=== PATIENT | female | born 1970 | race Caucasian/White ===

== ENCOUNTER → 2017-10-14 | Outpatient (CLI) | payer OTHER ==
[2017-10-14 06:58] LABS: AUTOMATED NEUTROPHIL # 3.7 TH/MM3 (1.8-7.7); BASOPHIL # 0.1 TH/MM3 (0-0.2); BASOPHIL % 1.2 % (0.0-2.0); EOSINOPHIL # 0.4 TH/MM3 (0-0.4); HEMATOCRIT 38.4 % (35.0-46.0); LYMPH % 27.4 % (9.0-44.0); LYMPHOCYTE # 1.8 TH/MM3 (1.0-4.8); MEAN CELL VOLUME 92.4 FL (80.0-100.0); MEAN CORPUSCULAR HEMOGLOBIN 31.4 PG (27.0-34.0); MEAN PLATELET VOLUME 8.1 FL (7.0-11.0); MONO % 9.3 % (0.0-8.0); MONOCYTE # 0.6 TH/MM3 (0-0.9); NEUT % 56.1 % (16.0-70.0); PLATELET COUNT 353 TH/MM3 (150-450); RED BLOOD COUNT 4.15 MIL/MM3 (4.00-5.30); RED CELL DISTRIBUTION WIDTH 12.5 % (11.6-17.2); WHITE BLOOD COUNT 6.5 TH/MM3 (4.0-11.0)
[2017-10-14 07:27] LABS: ALKALINE PHOSPHATASE 80 U/L (45-117); TOTAL BILIRUBIN ADULT 0.2 MG/DL (0.2-1.0); TOTAL PROTEIN 7.3 GM/DL (6.4-8.2)
[2017-10-14 07:29] LABS: ALBUMIN 3.5 GM/DL (3.4-5.0); ALT (GPT) 23 U/L (10-53); AST (GOT) 18 U/L (15-37); BICARBONATE 25.5 MEQ/L (21.0-32.0); BLOOD UREA NITROGEN 9 MG/DL (7-18); C-REACTIVE PROTEIN LESS THAN 0.29 MG/DL (0.00-0.30); CALCIUM 8.7 MG/DL (8.5-10.1); CHLORIDE 108 MEQ/L (98-107); CREATININE 0.68 MG/DL (0.50-1.00); GLOMERULAR FILTRATION RATE 94 ML/MIN (>89); GLUCOSE,FASTING 85 MG/DL (74-99); SODIUM (NA) 141 MEQ/L (136-145)
[2017-10-14 07:55] LABS: WESTERGREN SEDIMENTATION RATE 16 mm/hr (0-20)
== END ==
LOC: CLAB 06:38
PROVIDERS: ATTEND Internal Medicine Gastroenterology
DX: K50.90 Crohn's disease, unspecified, without complications (principal)
CPT/HCPCS: 36415; 80053; 85025; 85652; 86140

== ENCOUNTER → 2017-10-18 | Outpatient (CLI) | payer OTHER ==
[~2017-10-18] VITALS: Ht 149.9 cm; Wt 53.9 kg
[~2017-10-18] MED LIST: CHLORHEXIDINE GLUCONATE 2 % 1 PACK (2 CLOTHS) TOPICAL PRN; HYOSCYAMINE 0.125 MG TAB SL ONE; LACTATED RINGER'S 1000 ML IV PRN; LIDOCAINE HCL 1% PF 5 ML SYRINGE OTHER ONE; METOPROLOL TARTRATE 25 MG TAB PO PRN; PENT500C2 PO; POVIDONE IODINE 5% (ANTISEPSIS KIT) 4 APPLICATIONS EACH NARE PRN; PROPOFOL 200 MG/20 ML AMP IV ONE; SODIUM CHLORID 0.9% 500 ML IV PRN; VITACAP7 PO; omega red
[2017-10-18 13:55] VITALS: BP 124/69; PULSE 91; RESP 18; TEMP 98; O2SAT 98
--- NOTE | 2017-10-18 17:38 | MR ---
cc: Juan José Connell MD, Donato R MD DATE: 10/18/2017 INDICATIONS FOR PROCEDURE: History of Crohn's disease and abdominal pain. Photographs and biopsies were taken and pre-medication administered by anesthesiologist. Monitoring was constant pulse oximetry, EKG and blood pressure monitor. PROCEDURE NOTE: After informed consent was obtained and the procedure area, risks and benefits were explained, including risks of bleeding, sepsis, perforation, risks of anesthesia, the patient was placed in left lateral position. Video colonoscope was inserted into the rectum. We had utilized the enteroscope because of a previous history of elongated redundant colon. Indeed, the colon was redundant and tortuous, but with gentle pressure and advancement of the scope, the scope was ultimately passed in the ascending colon in the cecal position. In the cecum, there were multiple nodules noted some which were over 1 cm to almost 2 cm. They appeared to be rather soft and probably postinflammatory. There was one elongated pseudopolyp noted in the cecum as well. None of these lesions were removed by polypectomy technique for fear of bleeding and, therefore, multiple biopsies of these lesions were obtained for sampling. The ileocecal valve was seen, but unfortunately we could not negotiate the scope beyond all of these lesions into the lumen of the ileocecal valve and terminal ileum, which could signify a slight stricturing in this area with scarring. The scope was gradually withdrawn. The rest of the colon mucosa appeared to be normal. Some random biopsies were taken throughout each section. In the rectum, grade 1 internal hemorrhoids were noted. The patient tolerated the procedure well. She was transferred to recovery room in stable condition. IMPRESSION: This examination revealed multiple nodularities in the cecal region, most likely postinflammatory due to her longstanding history of Crohn's disease. The terminal ileum could not be entered because of these lesions surrounding the ileocecal valve and the opening of the valve may have been strictured or scarred from prior inflammatory change. PLAN: We will continue workup as an outpatient. Followup biopsies taken today. We will discuss the findings with the patient. Consider imaging studies as well. MD CANDELARIA Braxton/ , 05:20 PM , 05:36 PM
[2017-10-18 18:10] VITALS: BP 118/69; PULSE 84; RESP 18; TEMP 98; O2SAT 100
== END ==
LOC: HEND 13:45
PROVIDERS: ATTEND Internal Medicine Gastroenterology
DX: K50.90 Crohn's disease, unspecified, without complications (principal); K64.0 First degree hemorrhoids; R10.31 Right lower quadrant pain; Q43.8 Other specified congenital malformations of intestine
CPT/HCPCS: 88305